=== PATIENT | female | born 1960 | race Caucasian/White ===

== ENCOUNTER 2018-04-21 19:59 | Emergency (ER) | payer BC ==
--- OUTSIDE RECORDS SUMMARY | 2018-04-21 20:09 | XMS REPORT ---
:1960 External Reference #:[id number] Author Organization [facility] Address [address] [place] [address] Phone [phone] Care Team Providers Name Role Phone Yanni Reyes MD Care Team Information Airplane [employer] Photogrammetry Unavailable Payers Type Date Identification Numbers Payment Provider Subscriber Health Maintenance Effective: Policy Number: BCBS Ppo Medina Mcbride [facility] ([facility] [place] 09/13/2017 [id number] PayID: [id number] [address] [address] [place] [address] Problems Date Description Provider Status Onset: 01/10/2017 Impaired fasting glycaemia Yanni Reyes MD Active Onset: 03/17/2017 Irritable bowel syndrome Yanni Reyes MD Active Onset: 03/17/2017 Allergic rhinitis Yanni Reyes MD Active Onset: 03/17/2017 Mild intermittent asthma Yanni Reyes MD Active Onset: 03/18/2018 Chronic kidney disease stage 3 Yanni Reyes MD Active Onset: 03/17/2017 Essential hypertension Yanni Reyes MD Resolved Resolved: 03/18/2018 Family History Date Family Member(s) Problem(s) Comments Father due to Cancer, () - smoker 49 Lung : (age 92 Mother due to Natural Years) Causes Children 3 Siblings 3 First Brother 1/2 Brother. Valve Replacement. Age 62 First Sister due to Cancer, () - 60 Kidney Second Sister CAD (10/13/2010) stent /upstate age ??55 Social History Type Date Description Comments Marital Status Lives With Spouse Occupation Retired non licensed operator ETOH Use Rarely consumes alcohol Smoking Patient has never smoked Exercise Type/Frequency Exercises regularly Does housework daily and walks 5 x/week Allergies, Adverse Reactions, Alerts Date Description Reaction Status Severity Comments 03/11/2015 NKDA active Medications Medication Date Status Form Strength Qnty SIG Indications Ordering Provider Ramipril 03/24/ Active Capsules 2.5mg 30caps 1 by N18.3 Aaron2017 mouth MD Yanni every day Ventolin HFA 03/18/ Active Aerosol 108(90Base 1units 2 puffs Aaron2017 ) mcg/Act every 4 MD Yanni hours as needed Flovent HFA 03/18/ Active Aerosol 44mcg/Act 31.8gm 1 puff J45.30 Aaron 2017 twice a MD Yanni day Levocetirizine 03/17/ Active Tablets 5mg take 1 J30.9 Alberto Reyes 2016 tablet MD Yanni by mouth every evening - over-the -counter Dicyclomine HCL 02/05/ Active Tablets 20mg 60tabs 1 by Aaron 2016 mouth MD Yanni tid a day as needed Loratadine 11/07/ Active Tablets 10mg OTC 1 by Aaron, 2015 vandana Liao MD every day prn Multivitamins 03/11/ Active Capsules OTC 1 by Aaron 2014 vandana Liao MD every day Amoxicillin/Clavu 02/12/ Hx Tablets 875-125mg 20tabs 1 by R10.32 Aaron lanate Potassium 2016 - vandana Liao MD 03/16/ twice a 2016 day x 10 days Omeprazole 01/29/ Hx Capsules 40mg 90caps 1 by R10.12 Vahidvann 2016 - mouth 2x a, 02/12/ every Imelda, 2016 day for [employer] 1 week then 1x every day Escitalopram 01/22/ Hx Tablets 10mg 30tabs 1 by F41.9 Aaron Oxalate 2016 - vandana Liao MD 02/05/ every 2016 day Metoprolol 01/07/ Hx Tablets 25mg 60tabs 1 by Aaron Tartrate 2016 - vandana Liao MD 02/05/ twice a 2016 day Escitalopram 03/12/ Hx Tablets 10mg 30tabs 1 by F41.9 Aaron Oxalate 2015 - mouth MD Yanni 01/07/ every 2016 day Zyrtec Allergy 03/11/ Hx Capsules 10mg 30caps 1 by Aaron 2014 - mouth MD Yanni 07/12/ every 2014 day Flovent HFA 03/11/ Hx Aerosol 110mcg/Act 12gm 1 puff J45.30 Aaron 2014 - every MD Yanni 03/18/ night at 2018 bedtime Zinc 15 03/09/ Hx Tablets 66mg 1 by Aaron 2013 - mouth MD Yanni 03/11/ every 2014 day Ventolin HFA 03/07/ Hx Aerosol 108mcg/Act 1units 2 puffs Aaron 2012 - every MD Yanni 03/18/ hours as 2018 needed Flovent HFA 09/15/ Hx Aerosol 220mcg/Act 1units inhale 1 493.90 Aaron 2010 - puff by MD Yanni 03/11/ mouth at 2014 bedtime Aspirin Low Dose / Hx Tablets 81mg 1 po qd Aaron, - MD Yanni 2016 Metoprolol / Hx 25mg 1 by Unknown 0000 - mouth 01/07/ twice a 2016 day Immunizations CPT Code Status Date Vaccine Reaction Lot # [id number] Given 06/11/2017 Flu Vaccine NOS Q2037 Given 06/17/2016 Fluvirin Immunization [facility] Q2037 Given 06/21/2015 Fluvirin Immunization [facility] 07135 Given 06/19/2013 Afluria Or Fluvirin Flu Vac Intramuscular 90451 Given 06/17/2013 Afluria Or Fluvirin Flu Vac Intramuscular [id number] Given 05/23/2009 Afluria Or Fluvirin Flu Vac Intramuscular Vital Signs Date Vital Result Comment 03/24/2018 Weight 148.00 lb Heart Rate 76 /min BP Systolic 122 mmHg BP Diastolic 70 mmHg Respiratory Rate 18 /min Height 64 inches 5'4" 03/18/18 BMI (Body Mass Index) 25.4 kg/m2 03/18/2018 Weight 153.00 lb Heart Rate 76 /min BP Systolic 128 mmHg BP Diastolic 80 mmHg Respiratory Rate 18 /min Height 64 inches 5'4" 03/18/18 BMI (Body Mass Index) 26.3 kg/m2 03/17/2017 Weight 148.00 lb Heart Rate 84 /min BP Systolic 128 mmHg BP Diastolic 86 mmHg Respiratory Rate 16 /min Height 64 inches 5'4" BMI (Body Mass Index) 25.4 kg/m2 02/12/2017 Weight 140.00 lb Heart Rate 124 /min BP Systolic 150 mmHg BP Diastolic 90 mmHg Respiratory Rate 16 /min Height 64 inches 5'4" 01/07/17 BMI (Body Mass Index) 24.0 kg/m2 02/05/2017 Weight 142.00 lb Heart Rate 104 /min BP Systolic 130 mmHg BP Diastolic 88 mmHg Respiratory Rate 18 /min Height 64 inches 5'4" 01/07/17 BMI (Body Mass Index) 24.4 kg/m2 01/29/2017 Weight 139.00 lb Heart Rate 76 /min BP Systolic 150 mmHg BP Diastolic 90 mmHg Respiratory Rate 18 /min Height 64 inches 5'4" 01/07/17 BMI (Body Mass Index) 23.9 kg/m2 01/22/2017 Body Temperature 97.8 F Weight 142.00 lb Heart Rate 78 /min BP Systolic 150 mmHg BP Diastolic 80 mmHg BP Systolic Recheck 132 mmHg BP Diastolic Recheck 82 mmHg Respiratory Rate 18 /min Height 64 inches 5'4" 01/07/17 BMI (Body Mass Index) 24.4 kg/m2 01/07/2017 Weight 141.00 lb Heart Rate 78 /min BP Systolic 122 mmHg BP Diastolic 70 mmHg Respiratory Rate 13 /min Height 64 inches 5'4" 01/07/17 BMI (Body Mass Index) 24.2 kg/m2 03/12/2016 Weight 154.00 lb Heart Rate 94 /min BP Systolic 138 mmHg L/Reg BP Diastolic 86 mmHg L/Reg Respiratory Rate 17 /min Height 64 inches 5'4" BMI (Body Mass Index) 26.4 kg/m2 03/11/2015 Weight 146.00 lb Heart Rate 72 /min BP Systolic 120 mmHg BP Diastolic 80 mmHg Respiratory Rate 18 /min Height 64.5 inches 5'4.50" BMI (Body Mass Index) 24.7 kg/m2 03/09/2014 Weight 148.00 lb Heart Rate 68 /min BP Systolic 130 mmHg BP Diastolic 80 mmHg Respiratory Rate 18 /min Height 64.5 inches 5'4.50" Results Test Date Test Result H/L Range Note Laboratory test 03/18/2018 Pap Smear Thin Prep SEE NOTE 1 finding Laboratory test 03/18/2018 HPV Laboratory Allia 2 finding <SEE NOTE> Lipid 03/11/2018 Cholesterol 208 mg/dL High 50-199 3 Triglycerides 97 mg/dL 30-200 3 HDL 68 mg/dL 35-85 3, 4 Chol/ HDL Ratio 3.0 ratio Low 3.7-5.6 3 VLDL 19 mg/dL 2-29 3 LDL (Calc) 120 mg/dL High 20-99 3, 5 Laboratory test finding 03/11/2018 TSH 1.64 uIU/mL 0.35-4.94 3 CBC With Auto Diff 03/11/2018 WBC 6.8 K/uL 4.1-11.0 3 RBC 4.73 M/uL 4.00-5.40 3 Hemoglobin 14.0 gm/dL 12.0-16.0 3 Hematocrit 42.0 % 36.0-47.0 3 MCV 88.8 fL 80.0-97.0 3 MCH 29.6 pg 27.0-32.0 3 MCHC 33.4 g/dL 32.0-36.0 3 RDW 13.3 % 11.5-14.5 3 PLT Count 280 K/ul 140-400 3 MPV 7.4 FL 7.1-10.7 3 Neutrophil 44.4 % 35.0-75.0 3 Lymphocyte 35.3 % 16.0-52.0 3 Monocyte 9.4 % 2.0-10.0 3 Eosinophil 9.9 % High 0.0-5.0 3 Basophil 1.0 % 0.0-4.0 3 Abs Neutrophils 3.0 K/uL 2.1-8.0 3 Abs Lymphocytes 2.4 K/uL 0.8-5.5 3 Abs Monocytes 0.6 K/uL 0.1-1.0 3 Abs Eosinophils 0.7 K/uL High 0.0-0.5 3 Abs Basophils 0.1 K/uL 0.0-0.3 3 Comprehensive Met Panel-FCM 03/11/2018 Sodium 142 mmol/L 135-146 3, 6 Potassium 4.4 mmol/L 3.5-5.2 3 Chloride# 106 mmol/L 97-110 3, 7 Carbon Dioxide 28 mmol/L 24-34 3 Glucose 110 mg/dL High 70-105 3 BUN 20 mg/dL 6-26 3 Creatinine 1.0 mg/dL 0.5-1.4 3 Calcium 9.3 mg/dL 8.5-10.2 3 Total Protein 6.7 g/dL 6.0-8.0 3 Albumin 4.1 g/dL 3.6-4.9 3 Globulin 2.6 g/dL 2.0-3.5 3 A/G Ratio 1.6 Ratio 1.0-2.2 3 Total Bilirubin 0.6 mg/dL 0.1-1.3 3 Alkaline Phosphatase 71 U/L 24-140 3 Alt 27 U/L 3-42 3 Ast 23 U/L 8-42 3 Ashley Egfr >60 >60 3, 8 Non Ashley Egfr 56 Low >60 3, 9 Anion Gap 8 mmol/L 5-15 3, 10 Hemoglobin A1c 03/11/2018 Hemoglobin A1c 5.7 % 4.1-5.9 3 Estimated Average Glucose Calc 117 mg/dL 71-140 3 CBC With Auto Diff 02/16/2017 WBC 6.1 K/uL 4.1-11.0 11 RBC 4.55 M/uL 4.00-5.40 11 Hemoglobin 13.6 gm/dL 12.0-16.0 11 Hematocrit 40.7 % 36.0-47.0 11 MCV 89.5 fL 80.0-97.0 11 MCH 29.8 pg 27.0-32.0 11 MCHC 33.3 g/dL 32.0-36.0 11 RDW 13.7 % 11.5-14.5 11 PLT Count 256 K/ul 140-400 11 Neutrophil 59.2 % 35.0-75.0 11 Lymphocyte 26.0 % 16.0-52.0 11 Monocyte 8.8 % 2.0-10.0 11 Eosinophil 5.1 % High 0.0-5.0 11 Basophil 0.9 % 0.0-4.0 11 Abs Neutrophils 3.6 K/uL 2.1-8.0 11 Abs Lymphocytes 1.6 K/uL 0.8-5.5 11 Abs Monocytes 0.5 K/uL 0.1-1.0 11 Abs Eosinophils 0.3 K/uL 0.0-0.5 11 Abs Basophils 0.1 K/uL 0.0-0.3 11 Laboratory test finding 02/16/2017 TSH 0.80 uIU/mL 0.35-4.94 11 Hemoglobin A1c 02/16/2017 Hemoglobin A1c 5.7 % 4.1-5.9 11 Estimated Average Glucose Calc 117 71-140 11 Basic (BMP) 02/16/2017 Sodium 143 mmol/L 135-146 11, 12 Potassium 4.0 mmol/L 3.5-5.2 11 Chloride# 106 mmol/L 97-110 11, 13 Carbon Dioxide 28 mmol/L 24-34 11 Glucose 100 mg/dL 70-105 11 BUN 18 mg/dL 6-26 11 Creatinine 0.9 mg/dL 0.5-1.4 11 Calcium 9.6 mg/dL 8.5-10.2 11 Non Ashley Egfr >60 >60 11, 14 Ashley Egfr >60 >60 11, 15 Anion Gap 13 mmol/L 7-16 11, 16 Urinalysis With Microscopic 01/26/2017 Urine Color YELLOW Yellow 17 Urine Clarity CLEAR Clear 17 Urine Glucose - Dipstick NEGATIVE mg/dL Negative 17 Urine Bilirubin - Dipstick NEGATIVE Negative 17 Urine Ketone 15 mg/dL High Negative 17 Urine Specific [place] 1.015 1.010-1.030 17 Urine Blood MODERATE Negative 17 Urine PH 5.0 Low 6.5-7.5 17 Urine Protein - Dipstick NEGATIVE mg/dL Negative 17 Urine Urobilinogen - Dipstick 0.2 E.U./dL 0.2-1.0 17 Urine Nitrite - Dipstick NEGATIVE Negative 17 Urine Leuk Esterase NEGATIVE Negative 17 Urine RBC 0-2 rbc/hpf 0-2 17 Urine WBC 0-2 wbc/hpf 0-7 17 Urine Epithelial Cells VERY FEW /lpf None Seen 17 Source: URINE, CLEAN CAT <SEE NOTE> 17, 18 Comprehensive Metabolic Panel 01/26/2017 Glucose 103 mg/dL 74-106 17 BUN 18 mg/dL 7-18 17 Creatinine 1.1 mg/dL 0.6-1.3 17 Glom Filtration Rate, Estimate 54 mL/min >60 17 If >60 mL/min >60 17, 19 BUN/Creat 16.3 ratio 17 Sodium 139 mmol/L 136-145 17 Potassium 3.7 mmol/L 3.5-5.1 17 Chloride 103 mmol/L 98-107 17 Carbon Dioxide 25 mmol/L 21-32 17 Anion Gap 11 mEq/L 8-16 17 Calcium 9.8 mg/dL 8.5-10.1 17 Total Protein 8.3 g/dL High 6.4-8.2 17 Albumin 4.3 g/dL 3.4-5.0 17 Globulin 4.0 g/dL 1.9-4.3 17 Alb/Glob 1.1 ratio 17 Bilirubin,Total 0.5 mg/dL 0.2-1.0 17 Sgot/Ast 18 U/L 15-37 17 SGPT/Alt 30 U/L 12-78 17 Alkaline Phosphatase 84 U/L 45-117 17 Laboratory test finding 01/26/2017 Lipase 318 U/L 73-393 17 CBS W/Automated Diff 01/26/2017 White Blood Count 11.4 K/uL High 3.1-10.7 17 Red Blood Count 4.96 M/uL 3.90-5.40 17 Hemoglobin 14.9 gm/dL 11.6-15.8 17 Hematocrit 44.1 % 36.0-46.1 17 Mean Cell Volume 88.9 fl 80.9-99.0 17 Mean Corpuscular HGB 30.0 pg 25.9-32.7 17 Mean Corpuscular HGB Conc 33.8 g/dL 30.8-34.3 17 Platelet Count 272 K/uL 150-400 17 Red Cell Distri Width SD 43.0 fl 3-47 17 Red Cell Distri Width %CV 13.6 % 11.7-14.4 17 Mean Platelet Volume 9.3 fL 8.9-12.4 17 Neut% 63.6 % 40.4-72.8 17 Lymph % 26.5 % 20.0-42.0 17 [place] % 7.4 % 4.3-13.2 17 Eo% 2.2 % 0.0-6.6 17 Bas% 0.3 % 0.0-1.1 17 Neut# 7.26 K/uL High 1.8-7.0 17 Lymph # 3.03 K/uL 1.0-4.0 17 [place] # 0.85 K/uL 0.3-0.9 17 Eos # 0.25 K/uL 0.0-0.5 17 Baso # 0.04 K/uL 0.0-0.1 17 Slide Review 01/26/2017 Slide Review . 17, 20 CBC With Auto Diff 01/22/2017 WBC 9.1 K/uL 4.1-11.0 21 RBC 4.94 M/uL 4.00-5.40 21 Hemoglobin 14.6 gm/dL 12.0-16.0 21 Hematocrit 44.0 % 36.0-47.0 21 MCV 89.1 fL 80.0-97.0 21 MCH 29.6 pg 27.0-32.0 21 MCHC 33.2 g/dL 32.0-36.0 21 RDW 13.3 % 11.5-14.5 21 PLT Count 289 K/ul 140-400 21 Neutrophil 73.8 % 35.0-75.0 21 Lymphocyte 16.7 % 16.0-52.0 21 Monocyte 7.0 % 2.0-10.0 21 Eosinophil 1.9 % 0.0-5.0 21 Basophil 0.6 % 0.0-4.0 21 Abs Neutrophils 6.8 K/uL 2.1-8.0 21 Abs Lymphocytes 1.5 K/uL 0.8-5.5 21 Abs Monocytes 0.6 K/uL 0.1-1.0 21 Abs Eosinophils 0.2 K/uL 0.0-0.5 21 Abs Basophils 0.1 K/uL 0.0-0.3 21 Laboratory test finding 01/22/2017 Esr 19 mm/hr 0-20 21 Hepatic Panel (LFT) 01/22/2017 Total Protein 7.4 g/dL 6.0-8.0 21 Albumin 4.7 g/dL 3.6-4.9 21 Total Bilirubin 0.9 mg/dL 0.1-1.3 21 Direct Bilirubin 0.1 mg/dL 0.0-0.4 21 Alkaline Phosphatase 75 U/L 24-140 21 Alt 23 U/L 3-42 21 Ast 21 U/L 8-42 21 Laboratory test finding 01/22/2017 Lipase 34 U/L 11-82 21 Basic (BMP) 01/22/2017 Sodium 140 mmol/L 135-146 21, 22 Potassium 4.0 mmol/L 3.5-5.2 21 Chloride# 103 mmol/L 97-110 21, 23 Carbon Dioxide 26 mmol/L 24-34 21 Glucose 133 mg/dL High 70-105 21 BUN 15 mg/dL 6-26 21 Creatinine 1.0 mg/dL 0.5-1.4 21 Calcium 9.9 mg/dL 8.5-10.2 21 Non Ashley Egfr 57 Low >60 21, 24 Ashley Egfr >60 >60 21, 25 Anion Gap 15 mmol/L 7-16 21, 26 Laboratory test finding 01/22/2017 TSH 0.69 uIU/mL 0.35-4.94 21 Rout Urine W/ Micro -RL 01/22/2017 Color YELLOW 27 Appearance CLEAR 27 Spec Grav Urine 1.030 (1.003-1.030) 27 PH Urine 6.0 (5.0-7.5) 27 Leuk Esterase NEGATIVE (Neg) 27 Nitrite Urine NEGATIVE (Neg) 27 Protein Urine NEGATIVE (Neg) 27 Glucose Urine NEGATIVE (Neg) 27 Ketone Urine NEGATIVE (Neg) 27 Urobilinogen 0.2 mg/dL (0-1.0) 27 Bilirubin Urine NEGATIVE (Neg) 27 Blood/HGB Urine TRACE (Neg) 27 Urine WBC 0-2 [HPF] (0-5) 27 Urine RBC * 3-5 [HPF] (0-2) 27 Bacteria 1+ [HPF] 27, 28 Laboratory test 01/22/2017 Urine Culture Microbiology res <SEE 27, 29 finding NOTE> Hemoglobin A1c 01/08/2017 Hemoglobin A1c 5.8 % 4.1-5.9 30 Estimated Average Glucose Calc 120 71-140 30 Basic (BMP) 01/08/2017 Sodium 141 mmol/L 135-146 30, 31 Potassium 4.2 mmol/L 3.5-5.2 30 Chloride# 104 mmol/L 97-110 30, 32 Carbon Dioxide 28 mmol/L 24-34 30 Glucose 108 mg/dL High 70-105 30 BUN 15 mg/dL 6-26 30 Creatinine 1.0 mg/dL 0.5-1.4 30 Calcium 9.6 mg/dL 8.5-10.2 30 Non Ashley Egfr 55 Low >60 30, 33 Ashley Egfr >60 >60 30, 34 Anion Gap 13 mmol/L 7-16 30, 35 Laboratory test finding 01/08/2017 H. Pylori Stool Ag SEE NOTE 36, 37 Ua RFX Micro & Culture II 2017 Urine Color YELLOW Yellow 38 Urine Clarity CLEAR Clear 38 Urine Glucose - Dipstick NEGATIVE mg/dL Negative 38 Urine Bilirubin - Dipstick NEGATIVE Negative 38 Urine Ketone NEGATIVE mg/dL Negative 38 Urine Specific [place] <=1.005 Low 1.010-1.030 38 Urine Blood TRACE Negative 38 Urine PH 5.5 Low 6.5-7.5 38 Urine Protein - Dipstick NEGATIVE mg/dL Negative 38 Urine Urobilinogen - Dipstick 0.2 E.U./dL 0.2-1.0 38 Urine Nitrite - Dipstick NEGATIVE Negative 38 Urine Leuk Esterase NEGATIVE Negative 38 Source: URINE, CLEAN CAT <SEE NOTE> 38, 39 CBC With Auto Diff 03/12/2016 WBC 5.2 K/uL 4.1-11.0 RBC 4.70 M/uL 4.00-5.40 Hemoglobin 14.1 gm/dL 12.0-16.0 Hematocrit 41.7 % 36.0-47.0 MCV 88.7 fL 80.0-97.0 MCH 30.1 pg 27.0-32.0 MCHC 33.9 g/dL 32.0-36.0 RDW 13.2 % 11.5-14.5 PLT Count 241 K/ul 140-400 Neutrophil 58.8 % 35.0-75.0 Lymphocyte 25.2 % 16.0-52.0 Monocyte 8.1 % 2.0-10.0 Eosinophil 7.1 % High 0.0-5.0 Basophil 0.8 % 0.0-4.0 Abs Neutrophils 3.0 K/uL 2.1-8.0 Abs Lymphocytes 1.3 K/uL 0.8-5.5 Abs Monocytes 0.4 K/uL 0.1-1.0 Abs Eosinophils 0.4 K/uL 0.0-0.5 Abs Basophils 0.0 K/uL 0.0-0.3 Comprehensive Metabolic (CMP) 03/12/2016 Sodium 139 mmol/L 134-142 Potassium 4.4 mmol/L 3.5-5.2 Chloride 104 mmol/L 97-109 Carbon Dioxide 28 mmol/L 24-34 Glucose 118 mg/dL High 70-105 BUN 20 mg/dL 6-26 Creatinine 1.0 mg/dL 0.5-1.4 Calcium 9.8 mg/dL 8.5-10.2 Total Protein 7.2 g/dL 6.0-8.0 Albumin 4.3 g/dL 3.6-4.9 Globulin 2.9 g/dL 2.0-3.5 A/G Ratio 1.5 Ratio 1.0-2.2 Total Bilirubin 0.5 mg/dL 0.1-1.3 Alkaline Phosphatase 69 U/L 24-140 Alt 24 U/L 3-42 Ast 24 U/L 8-42 Anion Gap 11 mmol/L 6-14 Ashley Egfr >60 >60 40 Non Ashley Egfr 58 Low >60 41 Laboratory test finding 03/12/2016 TSH 1.27 uIU/mL 0.35-4.94 Lipid 03/12/2016 Cholesterol 208 mg/dL High 50-199 Triglycerides 87 mg/dL 30-200 HDL 70 mg/dL 35-85 42 Chol/ HDL Ratio 3.0 ratio Low 3.7-5.6 VLDL 17 mg/dL 2-29 LDL (Calc) 121 mg/dL High 20-99 43 Laboratory test finding 03/12/2016 Urine Culture Microbiology res <SEE NOTE > 44 Rout Urine W/ Micro -RL 03/12/2016 Color YELLOW Appearance CLEAR Spec Grav Urine 1.004 (1.003-1.030) PH Urine 6.5 (5.0-7.5) Leuk Esterase NEGATIVE (Neg) Nitrite Urine NEGATIVE (Neg) Protein Urine NEGATIVE (Neg) Glucose Urine NEGATIVE (Neg) Ketone Urine NEGATIVE (Neg) Urobilinogen 0.2 mg/dL (0-1.0) Bilirubin Urine NEGATIVE (Neg) Blood/HGB Urine TRACE (Neg) Epithelial Cells NEGATIVE [HPF] (Neg) Hyaline Casts 0.0 [LPF] (0-5) Bacteria NEGATIVE [HPF] (Neg) Urine WBC 0.1 [HPF] (0-8) Urine RBC 1.6 [HPF] (0-3) 45 Laboratory test 03/11/2015 Urine Culture Microbiology res <SEE 46 finding NOTE> Laboratory test 03/11/2015 TSH 0.65 uIU/mL 0.35-4.94 finding Hepatitis C Virus Antibody NONREACTIVE Nonreactive Comprehensive Metabolic (CMP) 03/11/2015 Sodium 140 mmol/L 134-142 Potassium 4.6 mmol/L 3.5-5.2 Chloride 104 mmol/L 97-109 Carbon Dioxide 28 mmol/L 24-34 Glucose 114 mg/dL High 70-105 BUN 15 mg/dL 6-26 Creatinine 0.9 mg/dL 0.5-1.4 Calcium 9.5 mg/dL 8.5-10.2 Total Protein 6.9 g/dL 6.0-8.0 Albumin 4.4 g/dL 3.6-4.9 Globulin 2.5 g/dL 2.0-3.5 A/G Ratio 1.8 Ratio 1.0-2.2 Total Bilirubin 0.5 mg/dL 0.1-1.3 Alkaline Phosphatase 63 U/L 24-140 Alt 18 U/L 3-42 Ast 21 U/L 8-42 Anion Gap 13 mmol/L 6-14 Ashley Egfr >60 >60 47 Non Ashley Egfr >60 >60 48 CBC With Auto Diff 03/11/2015 WBC 4.4 K/uL 4.1-11.0 RBC 4.80 M/uL 4.00-5.40 Hemoglobin 14.6 gm/dL 12.0-16.0 Hematocrit 43.6 % 36.0-47.0 MCV 90.9 fL 80.0-97.0 MCH 30.5 pg 27.0-32.0 MCHC 33.6 g/dL 32.0-36.0 RDW 13.1 % 11.5-14.5 PLT Count 209 K/ul 140-400 Neutrophil 53.6 % 35.0-75.0 Lymphocyte 29.9 % 16.0-52.0 Monocyte 8.2 % 2.0-10.0 Eosinophil 7.6 % High 0.0-5.0 Basophil 0.7 % 0.0-4.0 Abs Neutrophils 2.4 K/uL 2.1-8.0 Abs Lymphocytes 1.3 K/uL 0.8-5.5 Abmon 0.4 K/uL 0.1-1.0 Abs Eosinophils 0.3 K/uL 0.0-0.5 Abs Basophils 0.0 K/uL 0.0-0.3 Lipid 03/11/2015 Cholesterol 177 mg/dL 50-199 Triglycerides 90 mg/dL 30-200 HDL 67 mg/dL 35-85 49 Chol/ HDL Ratio 2.6 ratio Low 3.7-5.6 VLDL 18 mg/dL 2-29 LDL (Calc) 92 mg/dL 20-99 50 Laboratory test finding 03/09/2014 [id number] See Note 51 Urine Amorph Sediment Very Few Negative Urine Bacteria Very Few None Seen Urine Bilirubin - Dipstick Negative Negative Urine Blood Small High Negative Urine Clarity SL Cloudy Clear Urine Color Yellow Yellow Urine Epithelial Cells Very Few None Seen /lpf Urine Glucose - Dipstick Negative mg/dL Negative Urine Ketone Negative mg/dL Negative Urine Leuk Esterase Negative Negative Urine Nitrite - Dipstick Negative Negative Urine PH 5.5 Low 6.5-7.5 Urine Protein - Dipstick Negative mg/dL Negative Urine RBC 0-2 rbc/hpf 0-7 Urine Specific [place] >=1.030 1.010-1.030 Urine Uric Acid Crystals Few None Seen Urine Urobilinogen - Dipstick 0.2 E.U./dL 0.2-1.0 Urine WBC 0-2 wbc/hpf 0-7 Laboratory test finding 03/09/2014 Cytology See Note 52 [facility] [address] [place] [address] CYTOLOGY REPORT Source of Specimen(s): Thin Prep Cervical / Endocervical Pap Smear - One Vial Date of Last Menstrual Period: age 51 Menstrual History: Post-menopausal Other Clinical Conditions: Last Pap Smear: 2013 normal HPV ASSAY REQUESTED Specimen Adequacy SATISFACTORY FOR EVALUATION PRESENCE OF ENDOCERVICAL/TRANSFORMATION ZONE COMPONENT General Categorization NEGATIVE FOR INTRAEPITHELIAL LESION OR MALIGNANCY Interpretation NEGATIVE FOR INTRAEPITHELIAL LESION OR MALIGNANCY Comment HPV testing will be performed and a separate report will be issued. Reported: 03/22/2018 14:59 Electronically Signed Out By Estee STEEL(ASCP) [email or web address] ICD9 Code: Z01.419 CPT code: A: UP210G Unless otherwise specified, testing performed by [facility] [place] [address] [address] [place] [address] Amplified Molecular High Risk HPV Test Patient Name:MEDINA MCBRIDE Patient :1960 Ordering Physician:YANNI REYES MD Accession Number [id number] Specimen(s) Received A: High Risk HPV Thin Prep Cervical / Endocervical Pap Smear - One Vial Other Case Numbers: [id number] Diagnosis RISK GROUPS RESULTS High Risk NEGATIVE Tested for HPV Types (16, 18, 31, 33, 35, 39, 45, 51, 52, 56, 58, 59, 66, 68) Reported: 03/23/2018 07:49 Electronically Signed Out By Vesta Salinas oskar Gupta 3 1 year Fastin hours 1 year Fastin hours Fastin hours Fastin hours 1 year Fastin hours 1 year Fastin hours 4 Per NCEP ATP III Guidelines: Results lower than 40 mg/dL are suggestive of increased risk for coronary artery disease. Results > or=to 60 mg/dL are considered a negative risk factor. 5 Per NCEP ATP III Guidelines: Normal Population <130 Patients with medical conditions: CHD/DM Optimal: <100 Borderline high: 130-159 High: 160-189 Very high: >189 6 Updated reference range on new analyzer 7 Updated reference range on new analyzer 8 Concerning GFR Guidelines for Americans: Normal function or mild renal disease, if clinically at risk: >/=60 mL/min Moderately decreased: 30-59 Severely decreased: 15-29 Renal failure: <15 9 Concerning GFR Guidelines: Normal function or mild renal disease, if clinically at risk: >/=60 mL/min Moderately decreased: 30-59 Severely decreased: 15-29 Renal failure: <15 Glomerular Filtration Rate (GFR) is estimated based on the MDRD equation, which assumes a steady state for creatinine as recommended by the National Kidney Disease Education Program in conjunction with the National Institutes of Health and the National Kidney Foundation. Clinical conditions in which it may be necessary to measure GFR by using clearance methods include extremes of age and body size, severe malnutrition or obesity, diseases of skeletal muscle, paraplegia or quadriplegia, vegetarian diet, rapidly changing kidney function, and calculation of the dose of potentially toxic drugs that are excreted by the kidneys. 10 Updated Reference Range 11 prior to 12 Updated reference range on new analyzer 13 Updated reference range on new analyzer 14 Concerning GFR Guidelines: Normal function or mild renal disease, if clinically at risk: >/=60 mL/min Moderately decreased: 30-59 Severely decreased: 15-29 Renal failure: <15 Glomerular Filtration Rate (GFR) is estimated based on the MDRD equation, which assumes a steady state for creatinine as recommended by the National Kidney Disease Education Program in conjunction with the National Institutes of Health and the National Kidney Foundation. Clinical conditions in which it may be necessary to measure GFR by using clearance methods include extremes of age and body size, severe malnutrition or obesity, diseases of skeletal muscle, paraplegia or quadriplegia, vegetarian diet, rapidly changing kidney function, and calculation of the dose of potentially toxic drugs that are excreted by the kidneys. 15 Concerning GFR Guidelines for Americans: Normal function or mild renal disease, if clinically at risk: >/=60 mL/min Moderately decreased: 30-59 Severely decreased: 15-29 Renal failure: <15 16 Updated reference range on new analyzer 17 PAIN IN LEFT SIDE,HAS HAD FEW DAYS 18 URINE, CLEAN CATCH 19 Note: Persistent reduction for 3 months or more in an eGFR <60 mL/min/1.73 m2 defines CKD. Patients with eGFR values >/=60 mL/min/1.73 m2 may also have CKD if evidence of persistent proteinuria is present. The original MDRD equation for estimated GFR is not valid for patients less than 18 years of age. Additional information may be found at www.kdoqi.org. 20 Instrument flagged sample for slide review. Less than 10% Bands seen, few atypical lymphocytes seen. RBC morphology essentially normal. Platelet estimate=normal 21 today Fastin hours today Fastin hours Fastin hours Fastin hours today Fastin hours Fastin hours Fastin hours today Fastin hours 22 Updated reference range on new analyzer 23 Updated reference range on new analyzer 24 Concerning GFR Guidelines: Normal function or mild renal disease, if clinically at risk: >/=60 mL/min Moderately decreased: 30-59 Severely decreased: 15-29 Renal failure: <15 Glomerular Filtration Rate (GFR) is estimated based on the MDRD equation, which assumes a steady state for creatinine as recommended by the National Kidney Disease Education Program in conjunction with the National Institutes of Health and the National Kidney Foundation. Clinical conditions in which it may be necessary to measure GFR by using clearance methods include extremes of age and body size, severe malnutrition or obesity, diseases of skeletal muscle, paraplegia or quadriplegia, vegetarian diet, rapidly changing kidney function, and calculation of the dose of potentially toxic drugs that are excreted by the kidneys. 25 Concerning GFR Guidelines for Americans: Normal function or mild renal disease, if clinically at risk: >/=60 mL/min Moderately decreased: 30-59 Severely decreased: 15-29 Renal failure: <15 26 Updated reference range on new analyzer 27 Fastin hours 28 Unless otherwise specified, testing performed by [facility] [address] [place] [phone] Microbiology results SOURCE Clean Catch Midstream FINAL RESULT No growth 30 soon 31 Updated reference range on new analyzer 32 Updated reference range on new analyzer 33 Concerning GFR Guidelines: Normal function or mild renal disease, if clinically at risk: >/=60 mL/min Moderately decreased: 30-59 Severely decreased: 15-29 Renal failure: <15 Glomerular Filtration Rate (GFR) is estimated based on the MDRD equation, which assumes a steady state for creatinine as recommended by the National Kidney Disease Education Program in conjunction with the National Institutes of Health and the National Kidney Foundation. Clinical conditions in which it may be necessary to measure GFR by using clearance methods include extremes of age and body size, severe malnutrition or obesity, diseases of skeletal muscle, paraplegia or quadriplegia, vegetarian diet, rapidly changing kidney function, and calculation of the dose of potentially toxic drugs that are excreted by the kidneys. 34 Concerning GFR Guidelines for Americans: Normal function or mild renal disease, if clinically at risk: >/=60 mL/min Moderately decreased: 30-59 Severely decreased: 15-29 Renal failure: <15 35 Updated reference range on new analyzer 36 gave pt stool sample kit. 01/07/17- zs soon 37 SPECIMEN DESCRIPTION STOOL RESULT NEGATIVE FOR H. PYLORI ANTIGEN BY EIA REPORT STATUS FINAL 01/10/2017 Unless otherwise specified, testing performed by [facility] [address] [place] [phone] HEART BEATING FAST X2/3 DAYS, DONT FEEL GOOD 39 URINE, CLEAN CATCH 40 Concerning GFR Guidelines for Americans: Normal function or mild renal disease, if clinically at risk: >/=60 mL/min Moderately decreased: 30-59 Severely decreased: 15-29 Renal failure: <15 41 Concerning GFR Guidelines: Normal function or mild renal disease, if clinically at risk: >/=60 mL/min Moderately decreased: 30-59 Severely decreased: 15-29 Renal failure: <15 Glomerular Filtration Rate (GFR) is estimated based on the MDRD equation, which assumes a steady state for creatinine as recommended by the National Kidney Disease Education Program in conjunction with the National Institutes of Health and the National Kidney Foundation. Clinical conditions in which it may be necessary to measure GFR by using clearance methods include extremes of age and body size, severe malnutrition or obesity, diseases of skeletal muscle, paraplegia or quadriplegia, vegetarian diet, rapidly changing kidney function, and calculation of the dose of potentially toxic drugs that are excreted by the kidneys. 42 Per NCEP ATP III Guidelines: Results lower than 40 mg/dL are suggestive of increased risk for coronary artery disease. Results > or=to 60 mg/dL are considered a negative risk factor. 43 Per NCEP ATP III Guidelines: Normal Population <130 Patients with medical conditions: CHD/DM Optimal: <100 Borderline high: 130-159 High: 160-189 Very high: >189 44 Microbiology results SOURCE MIDU FINAL RESULT No growth 45 Unless otherwise specified, testing performed by [facility] [address] [place] [phone] Microbiology results SOURCE MIDU FINAL RESULT No growth 47 Concerning GFR Guidelines for Americans: Normal function or mild renal disease, if clinically at risk: >/=60 mL/min Moderately decreased: 30-59 Severely decreased: 15-29 Renal failure: <15 48 Concerning GFR Guidelines: Normal function or mild renal disease, if clinically at risk: >/=60 mL/min Moderately decreased: 30-59 Severely decreased: 15-29 Renal failure: <15 Glomerular Filtration Rate (GFR) is estimated based on the MDRD equation, which assumes a steady state for creatinine as recommended by the National Kidney Disease Education Program in conjunction with the National Institutes of Health and the National Kidney Foundation. Clinical conditions in which it may be necessary to measure GFR by using clearance methods include extremes of age and body size, severe malnutrition or obesity, diseases of skeletal muscle, paraplegia or quadriplegia, vegetarian diet, rapidly changing kidney function, and calculation of the dose of potentially toxic drugs that are excreted by the kidneys. 49 Per NCEP ATP III Guidelines: Results lower than 40 mg/dL are suggestive of increased risk for coronary artery disease. Results > or=to 60 mg/dL are considered a negative risk factor. 50 Per NCEP ATP III Guidelines: Normal Population <130 Patients with medical conditions: CHD/DM Optimal: <100 Borderline high: 130-159 High: 160-189 Very high: >189 51 [facility] [address] [place] [address], [address] [place] [address] CYTOLOGY REPORT Name: Mednia Mcbride : 1960 (Age: 54) Sex: F Location: [facility] Med. Rec. # [id number] Date Collected: 03/09/2014 Billing #: [id number] Date Received: 03/09/2014 Requisition # [id number] Physician(s): YANNI REYES MD Source of Specimen: ENDOCERVICAL/ECTOCERVICAL THIN PREP Clinical Information: Date of Last Menstrual Period: 2010 Menstrual History: Post menopausal Treatment History: Cryosurgery: Years ago Interpretation: NEGATIVE FOR INTRAEPITHELIAL LESION OR MALIGNANCY. Specimen Adequacy: SATISFACTORY FOR EVALUATION. Additional Findings: ENDOCERVICAL/TRANSFORMATION ZONE PRESENT. dcl Electronic Signature MILVIA Tsang (ASCP) Reported: 03/13/2014 [employer] HPV High Risk Date Ordered: 03/10/2014 Status: Signed Out Date Reported: 03/12/2014 High Risk NEGATIVE (HPV types 16, 18, 31, 33, 35, 39, 45, 51, 52, 56, 58, 59, 66, 68) APTIMA Electronic Signature Machelle Blood MT [employer] ICD-9 Code(s) V72.31 52 [facility] [address] [place] [address], [address] [place] [address] CYTOLOGY REPORT Name: Medina Mcbride : 1960 (Age: 54) Sex:F Location: [facility] Med. Rec. # [id number] Date Collected: 03/09/2014 Billing #: [id number] Date Received: 03/09 Requisition #: [id number] Physician(s): YANNI REYES MD Source of Specimen: URINE Clinical Information Microscopic hematuria. Sister had kidney cancer. V72.31, 599.70 Gross Description Received # cc. of # fluid. Final Diagnosis NO MALIGNANT CELLS IDENTIFIED. RARE RED BLOOD CELLS. Electronic Signature Dieter Meraz MD Reported: 03/12/2014 Also seen by: Anny Aviles, MILVIA (ASCP) [facility] ICD-9 Code(s) Procedures Date CPT Code Description Status Comment 03/18/2018 03732 Brief Emotional/Behav Completed Assessment W/ Scoring Doc Per Standard Inst 03/31/2017 Mammogram Completed 02/18/2017 91548 Echography Pelvic Complete Completed 02/18/2017 17347 Echography Abdominal Limited Completed 02/02/2017 Colonoscopy Completed was told this is normal - repeat in 10 years Document: 02/02/17 - Endoscopy 06/03/2015 Mammogram Completed Encounters Type Date Location Provider CPT E/M Dx Office Visit 03/18/2018 8:00a [facility] [place] [address] Z01.419 Z13.89 R73.01 K58.9 J30.9 J45.20 Z12.31 R92.2 N18.3 Z71.9 Z68.26 Office Visit 03/17/2017 9:00a [facility] [place] [address] Z01.419 R73.01 K58.9 I10 R31.9 J30.9 J45.20 Z12.31 Office Visit 02/12/2017 2:15p [facility] [place] [address] R93.5 R00.2 R10.32 Office Visit 02/05/2017 3:15p [facility] [place] [address] R73.01 K58.9 I10 F41.9 Office Visit 01/29/2017 11:30a [facility] [place] [address] R10.12 Office Visit 01/22/2017 8:00a [facility] [place] [address] R31.9 R10.9 R73.01 I10 F41.9 Office Visit 01/07/2017 11:15a [facility] [place] [address] R00.0 I10 K30 R73.01 F41.9 Office Visit 03/12/2016 8:15a [facility] [place] [address] Z01.419 F41.9 J30.9 R31.9 J45.30 Z12.31 Office Visit 03/11/2015 8:15a [facility] [place] [address] V72.31 V77.91 300.00 493.90 477.9 599.70 V73.89 V76.11 Plan of Care Future Appointment(s):04/21/2018 8:50 am - Schedule, Laboratory at [facility]2017 10:15 am - Yanni Reyes MD at [facility]06/15/2018 8:50 am - Schedule, Laboratory at [facility]03/14/2019 7:30 am - Schedule, Laboratory at [facility]03/21/2019 8: 15 am - Yanni Reyes MD at [facility]03/24/2018 - Yanni Reyes MDN18.3 Chronic kidney disease, stage 3 (moderate)New Medication:Ramipril 2.5 mgNew Labs:Kathryn Screen With Reflex-FCMGCRP (C-Reactive)Comprehensive Met Panel-FCMGComments: answered questions about renal disease. explained that at this point, the goal is to prevent damageto her kidneys. she does not need a special diet, but would not recommend Atkins. will start lowdose ramipril to protect her kidneys.Follow up:1 month follow-up ramipril start - check labs zwbdtL19.01 Impaired fasting glucoseComments:explained that controlling blood sugar is important for protecting the kidneys - medication not needed yet.L60.8 Other nail disordersNew Labs:EsrComments:check labs to evaluate for rheumatologic swbixopvV89.2 CervicalgiaNew Xrays:Spine, Cervical, 2 Or 3 ViewsComments:check xray to evaluate for jhgycobhwB82.25 Body mass index (BMI) 25.0-25.9, adult
[2018-04-21 20:49] VITALS: BP 141/78
--- NOTE | 2018-04-21 21:16 | UC ---
Ear Complaint HPI - HPI Summary HPI Summary: 5 day hx of progressive pain in the right ear and right side of the head and throat, throbbing and disrupting sleep. In January, had a cluster of crusts in the right side of scalp with simila r pain, less severe than current pain. No cough, fever, congestion. NO vertigo, headache; dental check within the past several months with good repair. - History of Current Complaint Chief Complaint: UCGeneralIllness Stated Complaint: RIGHT EAR PAIN Time Seen by Provider: 04/21/18 20:48 Hx Obtained From: Patient Hx Last Menstrual Period: n/a Onset/Duration: Gradual Onset, Lasting Days - 5 Severity Initially: Moderate Severity Currently: Severe Pain Intensity: 8 Aggravating Factors: Nothing Alleviating Factors: Nothing - has not used anlagesics. - Allergies/Home Medications Allergies/Adverse Reactions: Allergies Allergy/AdvReac Type Severity Reaction Status Date / Time seasonal allergy Allergy Eyes Uncoded 10/18/13 12:00 Itchy/Swollen/Red/Watery Home Medications: Home Medications Fluticasone HFA 44 mcg(NF) [Flovent Hfa 44 mcg(NF)] 1 puff INH BEDTIME 04/21/18 [History Confirmed 04/21/18] Multivitamin with Minerals [One Daily Complete] 1 each PO DAILY 04/21/18 [ History Confirmed 04/21/18] Ramipril CAP* [Altace CAP*] 2.5 mg PO DAILY 04/21/18 [History Confirmed 04/21/18 ] PMH/Surg Hx/FS Hx/Imm Hx - Additional Past Medical History Additional PMH: dx stage 3 renal disease last month and started on ramipril - Surgical History Surgical History: Yes Surgery Procedure, Year, and Place: tonsils as 18yr old; tubal ligation; right rotator cuff - Family History Known Family History: Positive: Other - no hx of neuralgia or neurologic disorders - Social History Occupation: Employed Full-time - crop or livestock tenant farmer Lives: With Family Alcohol Use: Rare Substance Use Type: None Smoking Status (MU): Never Smoked Tobacco Review of Systems Constitutional: Fatigue Skin: Negative Eyes: Negative ENT: Sore Throat, Ear Ache Respiratory: Negative Cardiovascular: Other - aware of elevated blood pressure. Gastrointestinal: Negative Genitourinary: Negative Motor: Negative Neurovascular: Negative Musculoskeletal: Negative Neurological: Negative Psychological: Negative Is Patient Immunocompromised?: No All Other Systems Reviewed And Are Negative: Yes Physical Exam Triage Information Reviewed: Yes Appearance: Well-Appearing, Pain Distress - moderate to severe. Vital Signs: Initial Vital Signs Temp 98 F 04/21/18 20:45 Pulse 99 04/21/18 20:45 Resp 16 04/21/18 20:45 BP 141/78 04/21/18 20:45 Pulse Ox 100 04/21/18 20:45 Eye Exam: Other - no tearing. Eyes: Positive: Conjunctiva Clear ENT: Positive: Pharyngeal erythema - past tonsillectomy. + postnasal drainage., TM dull - right TM mildly retracted, no erythema Dental Exam: Normal, Other - no percussive tenderness, good repair, healthy gums. No TMJ pain Respiratory: Positive: Lungs clear, Normal breath sounds Cardiovascular: Positive: RRR, No Murmur Neurological Exam: Other - CNII-XII normal Neurological: Positive: Alert Psychological Exam: Normal Skin Exam: Normal Ear Complaint Course/Dx - Course Course Of Treatment: acetaminophen for pain, suspect trigeminal neuralgia - Differential Dx/Diagnosis Differential Diagnosis/HQI/PQRI: Otitis Media, Trigeminal Nueralgia, URI Provider Diagnoses: suspect trigeminal neurlagia Discharge - Sign-Out/Discharge Documenting (check all that apply): Patient Departure - Discharge Plan Condition: Stable Disposition: HOME Patient Education Materials: Trigeminal Neuralgia (ED) Referrals: Yanni Walker MD [Primary Care Provider] - Cherry Armenta MD [Medical Doctor] - Additional Instructions: Please call for a neurology assessment, and dry to see Dr. Walker earlier than the 16th. Begin acetaminophen 1000mg every 8 hours for control of pain. Dr. Armenta comes to [facility] to do assessments: [phone] - Billing Disposition and Condition Condition: STABLE Disposition: Home
== END 2018-04-21 21:27 | disposition home or self-care (01) ==
LOC: UCCORT 19:59
DX: H92.01 Otalgia, right ear (principal); N18.3 Chronic kidney disease, stage 3 (moderate); R51 Headache; J02.9 Acute pharyngitis, unspecified
CPT/HCPCS: 99211; G0463